=== PATIENT | male | born 2000 | race Caucasian/White ===

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

== ENCOUNTER 2021-04-19 14:01 | Emergency (ER) | payer OTHER, SELFPAY ==
[2021-04-19 14:23] VITALS: BP 144/90; PULSE 71; RESP 20; TEMP 36.8; O2SAT 98; BMI 21.2
--- NOTE | 2021-04-19 14:37 | HMH.EDUTC ---
[facility] [place] Disposition Clinical Impression: Strep throat Gastritis Qualifiers: Gastritis type: unspecified gastritis Chronicity: acute Gastritis bleeding: without bleeding Qualified Code(s): K29.00 - Acute gastritis without bleeding Clinical Impression: (Ruled Out): Medication refill Disposition: Home, Self-Care Condition on Discharge: Good Instructions: Strep Throat, DI for Strep Throat Additional Instructions: Drink plenty of fluids. Take tylenol or ibuprofen for pain or fever. Take the medications as directed. Follow up with your regular doctor. GO TO THE ER FOR ANY WORSENING SYMPTOMS Throw your tooth brush away and get a new one. Prescriptions: Ondansetron [Zofran 4mg ODT] 4 mg PO Q8HP PRN #20 tab PRN Reason: Nausea Transmission Status: Received by [facility] Amoxicillin [Amoxicillin 500mg Tab] 500 mg PO TID 10 Days #30 tab Transmission Status: Received by [facility] Referrals: Dawit Benoit MD [Primary Care Provider] - Forms: Work/School Release Time of Disposition: 15:17 Medical Decision Making - Medical Records Medical records reviewed: No: I reviewed the patient's medical records. - Alex Inquiry Pt receiving controlled substance: No Vital Signs: 04/19/21 14:23 04/19/21 15:45 Temperature 98.3 F 98.3 F Temperature Source Oral Pulse Rate 71 Pulse Rate [Left] 71 Respiratory Rate 20 20 Blood Pressure 144/90 H Blood Pressure [Right Arm] 144/90 H Blood Pressure Mean [Right Arm] 108 02 Sat by Pulse Oximetry 98 - Lab Data Lab Results 04/19/21 14:25: Strep Scn Rapid Clinic Positive A [facility] [place] HPI - General Stated complaint: vomiting, headache, Time Seen by Provider: 04/19/21 14:37 Mode of Arrival: Ambulatory Source of Information: Patient Limitations: No Limitations Description of Symptoms (Recalled from Triage Doc. by RN): pt c/o n/v/d, stomach ache and a sinus migraine. HEENT Symptoms (Recalled from RN notes): Yes (sinus migraine) Resp Symptoms (Recalled from RN notes): No Skin Symptoms (Recalled from RN notes): No MS Symptoms (Recalled from RN notes): No Functional Status (Recalled from RN notes): wnl - History of Present Illness Provider Complaint: He c/o head ache, sore throat, gi upset and feeling bad since last night. He denies significant chest congestion and cough, - Related Data Home Medications Medication Instructions Recorded Confirmed Loratadine [Allerclear] 10 mg PO DAILY 08/03/17 08/03/17 Montelukast Sodium [Singulair 10mg 10 mg PO PM 08/03/17 08/03/17 tablet] Previous Rx's Medication Instructions Recorded Albuterol Sulfate [Albuterol HFA 2 puffs IH Q6HP PRN #1 inh 08/03/17 Inhaler] nystatin 100,000 unit/mL oral 10 ml PO QID #480 ml 04/29/19 suspension Amoxicillin [Amoxicillin 500mg Tab] 500 mg PO TID 10 Days #30 tab 04/19/21 Ondansetron [Zofran 4mg ODT] 4 mg PO Q8HP PRN #20 tab 04/19/21 Allergies Allergy/AdvReac Type Severity Reaction Status Date / Time fish oil Allergy Severe THROAT Verified 08/03/17 13:03 SWELLS shellfish derived Allergy Unknown THROAT Verified 08/03/17 13:03 [From SHELLFISH (FOOD/DRUG)] SWELLS SHELLFISH (FOOD) Allergy Unknown THROAT Uncoded 05/14/17 15:04 SWELLS - Worker's Comp Is this a Worker's Comp case?: No [facility] History - Hepatitis A Screen Drug use history?: No High risk sexual behaviors?: No History of sexually transmitted infection?: No Currently employed?: No Childcare worker?: No Do you have indoor plumbing?: Yes Do you have electricity?: Yes Attestation statement:: This patient has been screened for Hepatitis A risk factors. I have reviewed the patient's past medical history: Yes - Social History Smoking Status: Current every day smoker Tobacco Type: cigarettes Alcohol Intake: never ROS Obtained: Yes All systems reviewed & no additional complaints - Constitutional Constitutional: Reports as per HPI - Ey
[2021-04-19 15:09] LABS: UTC Strep Screen (Rapid) Positive (Negative)
[2021-04-19 15:45] VITALS: BP 144/90; PULSE 71; RESP 20; TEMP 36.8
== END 2021-04-19 15:46 | disposition home or self-care (01) ==
PROVIDERS: Emergency Provider Nurse Practitioner Family; PCP Internal Medicine Adolescent Medicine
DX: K29.00 Acute gastritis without bleeding (principal); Z20.822 Contact with and (suspected) exposure to COVID-19
CPT/HCPCS: 87880; 99203; C9803; G0463; U0003; U0005

== ENCOUNTER 2021-08-23 13:12 | Emergency (ER) | payer OTHER, SELFPAY ==
[2021-08-23 15:04] VITALS: BP 123/76; PULSE 50; RESP 18; TEMP 36.9; O2SAT 99; BMI 20.7
[2021-08-23 15:16] LABS: UTC Influenza A Antigen Negative (Negative)
[2021-08-23 15:17] LABS: UTC Influenza B Antigen Negative (Negative)
[2021-08-23 15:27] LABS: Strep Scrn Group A (Rapid) Negative (Negative)
--- NOTE | 2021-08-23 15:29 | HMH.EDUTC ---
[facility] [place] Clinical Impression: Viral syndrome Disposition: Home, Self-Care Condition on Discharge: Good Instructions: DI for Viral Syndrome Additional Instructions: Drink plenty of fluids. Take tylenol or ibuprofen for pain or fever. Take the medications as directed. Follow up with your regular doctor. GO TO THE ER FOR ANY WORSENING SYMPTOMS He was sick with the same illness yesterday, so his work excuse needs to count for 08/22 also. Prescriptions: Brompheniramine/Pseudoephed/Dm [Bromfed Dm Cough Syrup] 5 ml PO Q6HP PRN #240 ml PRN Reason: Cough Transmission Status: Received by [facility] Ondansetron [Zofran 4mg ODT] 4 mg PO Q8HP PRN #20 tab PRN Reason: Nausea Transmission Status: Received by [facility] Referrals: Dawit Benoit MD [Primary Care Provider] - Forms: Work/School Release Time of Disposition: 16:14 Medical Decision Making - Medical Records Medical records reviewed: No: I reviewed the patient's medical records. - Alex Inquiry Pt receiving controlled substance: No Vital Signs: 08/23/21 15:04 08/23/21 16:27 Temperature 98.4 F 98.4 F Temperature Source Oral Pulse Rate 50 L Pulse Rate [Left] 50 L Respiratory Rate 18 18 Blood Pressure 123/76 Blood Pressure [Right Arm] 123/76 Blood Pressure Mean [Right Arm] 91 02 Sat by Pulse Oximetry 99 - Lab Data Lab results reviewed: Yes: I reviewed the patient's lab results. Lab Results 08/23/21 15:03: Group A Strep Rapid Negative 08/23/21 15:05: Influenza Type A Ag Negative, Influenza Type B Ag Negative Orders (Tests/Meds): ORDERS Category Date Time Status Strep Screen Confirmation Stat Micro 08/23/21 15:03 Received [facility] [place]PI - General Stated complaint: headache,vomiting,chills Time Seen by Provider: 08/23/21 15:45 Mode of Arrival: Ambulatory Source of Information: Patient Limitations: No Limitations Description of Symptoms (Recalled from Triage Doc. by RN): pt c/o a migraine in his R eye, n/v and chills yesterday. HEENT Symptoms (Recalled from RN notes): Yes Resp Symptoms (Recalled from RN notes): No Skin Symptoms (Recalled from RN notes): No MS Symptoms (Recalled from RN notes): No Functional Status (Recalled from RN notes): wnl - History of Present Illness Provider Complaint: He states that he started chilling and running a low grade fever yesterday. Today he feels very fatigued, has a dry cough, body aches and n/v - Related Data Home Medications Medication Instructions Recorded Confirmed Loratadine [Allerclear] 10 mg PO DAILY 08/03/17 08/03/17 Montelukast Sodium [Singulair 10mg 10 mg PO PM 08/03/17 08/03/17 tablet] Previous Rx's Medication Instructions Recorded Albuterol Sulfate [Albuterol HFA 2 puffs IH Q6HP PRN #1 inh 08/03/17 Inhaler] nystatin 100,000 unit/mL oral 10 ml PO QID #480 ml 04/29/19 suspension Amoxicillin [Amoxicillin 500mg Tab] 500 mg PO TID 10 Days #30 tab 04/19/21 Ondansetron [Zofran 4mg ODT] 4 mg PO Q8HP PRN #20 tab 04/19/21 Brompheniramine/Pseudoephed/Dm 5 ml PO Q6HP PRN #240 ml 08/23/21 [Bromfed Dm Cough Syrup] Ondansetron [Zofran 4mg ODT] 4 mg PO Q8HP PRN #20 tab 08/23/21 Allergies Allergy/AdvReac Type Severity Reaction Status Date / Time fish oil Allergy Severe THROAT Verified 08/03/17 13:03 SWELLS shellfish derived Allergy Unknown THROAT Verified 08/03/17 13:03 [From SHELLFISH (FOOD/DRUG)] SWELLS SHELLFISH (FOOD) Allergy Unknown THROAT Uncoded 05/14/17 15:04 SWELLS - Worker's Comp Is this a Worker's Comp case?: No H History - Hepatitis A Screen Drug use history?: No High risk sexual behaviors?: No History of sexually transmitted infection?: No Currently employed?: No Childcare worker?: No Do you have indoor plumbing?: Yes Do you have electricity?: Yes Attestation statement:: This patient has been screened for Hepatitis A risk factors. I have reviewed the slade
[2021-08-23 16:27] VITALS: BP 123/76; PULSE 50; RESP 18; TEMP 36.9
== END 2021-08-23 16:27 | disposition home or self-care (01) ==
PROVIDERS: Emergency Provider Nurse Practitioner Family; PCP Internal Medicine Adolescent Medicine
DX: B34.9 Viral infection, unspecified (principal); R50.9 Fever, unspecified; R11.10 Vomiting, unspecified; F17.210 Nicotine dependence, cigarettes, uncomplicated; Z79.899 Other long term (current) drug therapy
CPT/HCPCS: 87430; 87804; 99212; G0463

== ENCOUNTER 2024-04-28 13:56 | Emergency (ER) | payer BC, SELFPAY ==
[2024-04-28 14:05] VITALS: BP 161/90; PULSE 110; PULSE 125; RESP 22; TEMP 36.9; O2SAT 92; BMI 22.1
--- NOTE | 2024-04-28 14:13 | XR_ITS ---
PROCEDURE INFORMATION: Exam: XR Chest Exam date and time: 04/28/2024 2:30 PM Age: 23 years old Clinical indication: Shortness of breath and wheezing; Additional info: SOA, asthma exacerbation, R wheezing> L TECHNIQUE: Imaging protocol: Radiologic exam of the chest. Views: 2 views. Total images: 2 COMPARISON: No relevant prior studies available. FINDINGS: Lungs: Bilateral hyperinflation is present. No focal pneumonia. Pleural spaces: Unremarkable. No pleural effusion. No pneumothorax. Heart/Mediastinum: Unremarkable. No cardiomegaly. Bones/joints: Unremarkable. IMPRESSION: 1. Bilateral hyperinflation is present. 2. No focal pneumonia.
[2024-04-28] MEDS: DEXAMETHASONE 4MG TABLET 10 MG PO (14:17)
[2024-04-28] MEDS: IPRATROPIUM/ALBUTEROL 3 ML NEB 9 ML IH (14:17)
--- NOTE | 2024-04-28 14:19 | ED_ITS ---
Discharge Plan Disposition Patient Disposition: Home, Self-Care Prescriptions Prescriptions: New budesonide-formoterol [Symbicort] 80-4.5 mcg/actuation HFA aerosol inhaler 2 inh inhalation BID Qty: 10.2 5RF albuterol sulfate 2.5 mg /3 mL (0.083 %) solution for nebulization 2.5 mg inhalation Q4H PRN (Reason: shortness of breath or wheezing) Qty: 180 3RF doxycycline hyclate 100 mg capsule 100 mg PO BID 5 Days Qty: 10 0RF prednisone 20 mg tablet 40 mg PO DAILY 5 Days Qty: 10 0RF No Action nystatin 100,000 unit/mL suspension 10 ml PO QID Qty: 480 0RF Rx Instructions: administer 1/2 of dose in each side of the mouth montelukast 10 MG tablet 10 mg PO PM loratadine [Allerclear] 10 MG tablet 10 mg PO DAILY albuterol sulfate 18 GM HFA aerosol inhaler 2 puffs IH Q6HP PRN (Reason: Shortness Of Breath Or Wheezing) Qty: 1 1RF amoxicillin 500 MG tablet 500 mg PO TID 10 Days Qty: 30 0RF ondansetron 4 MG tablet,disintegrating 4 mg PO Q8HP PRN (Reason: Nausea) Qty: 20 0RF ykjpbsvggfqcecn-kqbjijwjz-AO 118 ML syrup 5 ml PO Q6HP PRN (Reason: Cough) Qty: 240 0RF ondansetron 4 MG tablet,disintegrating 4 mg PO Q8HP PRN (Reason: Nausea) Qty: 20 0RF Referrals Follow up/Referrals: Dawit Benoit MD [Primary Care Provider] - See instructions Activity Restrictions/Add. Instructions Additional Instructions/Restrictions: Antibiotic twice daily for 5 days, prednisone each morning for the next 5 days. Call your family doctor to establish care for this visit to the emergency department and schedule follow-up within 48 hours to ensure improvement. If you have any worsening of your condition or any other concerning signs or symptoms, return to the emergency department or your primary care doctor for further evaluation. Clinical Impressions Clinical Impression: Asthma exacerbation, Right lower lobe pneumonia Print Language Print Language: Amharic Discharge ED Provider: Aroldo Rocha General Chief Complaint: Shortness of Breath/Dyspnea Stated Complaint: asthma flare up Time Seen by Provider: 04/28/24 14:07 Mode of Arrival: Ambulatory Source of Information: Patient Limitations: No Limitations Description of Symptoms (Recalled from ER Triage Doc. by RN): short of breath,has asthma tachycardia History of Present Illness HPI narrative: Please note that above description of symptoms, in this electronic medical record under categorization of recalled from ER triage doctor by RN are reflective of an initial nursing assessment, however, is not reflective of my full history and physical exam that was personally taken and clarified. Consequentially, this preceding description of symptoms, which may include the patient's categorized chief complaint in the EMR, do not reflect my personal clinical impression, and the ultimate description of history of present illness and patient stated complaints should be deferred to this section of the note. Unless stated otherwise or congruent with this section of the note, additional signs, symptoms, or incongruence should be interpreted as inaccurate with my clinical impression. Related Data Home Medications ?Medication ?Instructions ?Recorded ?Confirmed loratadine 10 mg tablet 10 mg PO DAILY ALLERGIES 08/03/17 08/03/17 (Allerclear) montelukast 10 mg tablet 10 mg PO PM ALLERGIES 08/03/17 08/03/17 Previous Rx's ?Medication ?Instructions ?Recorded albuterol sulfate 90 mcg/actuation 2 puffs IH Q6HP PRN Shortness Of 08/03/17 aerosol inhaler Breath Or Wheezing #1 inh nystatin 100,000 unit/mL oral 10 ml PO QID #480 mL 04/29/19 suspension amoxicillin 500 mg tablet 500 mg PO TID 10 days #30 tabs 04/19/21 ondansetron 4 mg disintegrating 4 mg PO Q8HP PRN Nausea #20 tabs 04/19/21 tablet nuvnkvjdvorrasq-ilhegakvqcxgazh-GL 5 ml PO Q6HP PRN Cough #240 mL 08/23/21 2 mg-30 mg-10 mg/5 mL oral syrup ondansetron 4 mg disintegrating 4 mg PO Q8HP PRN Nausea #20 tabs 08/23/21 tablet albuterol sulfate 2.5 mg/3 mL 2.5 mg (3 mL) inhalation Q4H PRN 04/28/24 (0.083 %) solution for nebulization shortness of breath or wheezing #180 mL budesonide-formoterol HFA 80 2 inh inhalation BID #10.2 grams 12/03/24 mcg-4.5 mcg/actuation aerosol inhaler (Symbicort) doxycycline hyclate 100 mg capsule 100 mg PO BID 5 days #10 caps 04/28/24 prednisone 20 mg tablet 40 mg (2 x 20 mg) PO DAILY 5 days 04/28/24 #10 tabs Allergies Allergy/AdvReac Type Severity Reaction Status Date / Time fish oil Allergy Severe THROAT Verified 08/03/17 13:03 SWELLS shellfish derived (From Allergy Unknown THROAT Verified 08/03/17 13:03 SHELLFISH (FOOD/DRUG)) SWELLS SHELLFISH (FOOD) Allergy Unknown THROAT Uncoded 05/14/17 15:04 SWELLS PFSH PFS Disclaimer: The information contained in this section may have been updated after the patient was seen, as this information can be updated by other users. Social History Smoking Status: Never smoker alcohol intake: never current occupational status: employed Travel in the last 8 weeks: None ROS Obtained: Yes All systems reviewed & no additional complaints except as documented Physical Exam General General appearance: alert and in distress (Mild respiratory distress, tachypneic, expiring through pursed lips) Neck Neck exam: Present trachea midline Chest Chest inspection: Present normal inspection and symmetric chest wall rise Respiratory Respiratory exam: Present wheezes (Bilateral, right greater than left on expiration.. Inspiratory wheezes right lower lobe posteriorly), accessory muscle use and prolonged expiratory phase; Absent respiratory distress or stridor Cardiovascular Cardiovascular exam: Present regular rate, normal rhythm and other (Pulses equal and symmetric in upper and lower extremities) Extremities Exam Extremities exam: Absent edema Neurological Exam Neurological exam: Present alert, oriented X3 and CN II-XII intact Skin Skin exam: Present warm and dry; Absent cyanosis, diaphoresis or pallor HEART Score HEART Score HEART Score assessment performed?: No Critical Care Critical Care Time Critical Care Time: No Medical Decision Making Medical Records Medical records reviewed: Yes I reviewed the patient's medical records. Alex Inquiry Pt receiving controlled substance: No Laex was queried for this patient: No Vital Signs Vital Signs: 04/28/24 14:05 04/28/24 14:05 04/28/24 14:30 Temperature 98.4 F Temperature Source Oral Pulse Rate 125 H 101 H Pulse Rate [Right] 110 H Respiratory Rate 22 Blood Pressure 161/90 H 147/94 H Blood Pressure [Right Arm] 161/90 H Blood Pressure Mean [Right Arm] 113 02 Sat by Pulse Oximetry 92 L 92 L 96 Oxygen Delivery Method Room Air Room Air Room Air Response Orders (Tests/Meds): ED MEDICATIONS Discontinued Medications Generic Name Dose Route Start Last Admin Trade Name Melissa PRN Reason Stop Dose Admin Albuterol/Ipratropium 9 ml 04/28/24 14:12 04/28/24 14:17 Ipratropium/Albuterol 3 Ml Neb IH 04/28/24 14:13 9 ml ONCE ONE Administration Dexamethasone 10 mg 04/28/24 14:12 04/28/24 14:17 Dexamethasone 4mg Tablet PO 04/28/24 14:13 10 mg ONCE ONE Administration ORDERS Category Date Time Status CXR 2 view (NOT portable) [XR chest 2V] Stat Exams 04/28/24 14:13 Taken HIV (1&2) Antibody Rapid Stat Lab 04/28/24 14:08 Ordered Hep C Ab with Reflex to RNA Stat Lab 04/28/24 14:08 Ordered MDM Narrative Medical Decision Narrative: 23-year-old male history of asthma poorly controlled presenting with difficulty breathing. Patient states that he has had cough for the last 48 hours or so. Now productive of yellow sputum. States that he has been having trouble breathing throughout today. Has been taking pwhh-mjy-hjyvysg supplements to try to help with breathing that usually help, has not helped this time around. No fevers or chills, nausea or vomiting, change in mental status, chest pain, or other complaints. No sick contacts that he knows of. Almost out of his nebulizer solution. Patient states that he has had numerous hospitalizations throughout his life for asthma exacerbations, this feels similar. Never needed intubated. History was obtained via conversation with patient and father. On arrival, patient hemodynamically stable, alert, oriented x4, appropriate, GCS 15, moving all extremities spontaneously, pupils equal and reactive to light. Full physical exam performed and significant for 23-year-old male mild respiratory distress. Breathing through pursed lips, tachypneic, prolonged expiratory phase. Hypoxemic 92% on room air initially. Bilateral expiratory wheezes heard throughout expiratory phase, inspiratory wheezes right lower lung [place]. Tachycardic without other focal cardiac findings. Differential includes asthma exacerbation, pneumonia,. Patient was given DuoNebs and Decadron for symptomatic management and correction of underlying abnormalities. Patient placed on continuous cardiac monitoring and continuous pulse ox with initial blood pressure 161/90, heart rate 125, saturation 92% on room air. Workup independently interpreted and significant for bronchial inflammation and viral appearance on chest x-ray. He appears to have isolated streaking right lower lung field where he had most of his wheezes consistent with developing pneumonia as well. See radiology read for full review of final results. On reevaluation, patient states he feels much better, not currently symptomatic. No longer coughing, not feeling short of breath. Given patient presentation, workup, history, this most likely represents acute asthma exacerbation in the setting of viral illness given DICK guidelines, Symbicort sent to pharmacy. Because patient at baseline without signs or symptoms of clinical decompensation, deemed appropriate for discharge. Results were relayed to kwame argueta who voiced understanding and were agreeable to outpatient management and follow up. I discussed my clinical impression with patient and answered all questions. At this time, the evidence for any other entities in the differential is insufficient to warrant any further testing or ED observation. This was explained as well. Advisory was given that persistent or worsening symptoms require further evaluation. I confirmed the understanding of this discussion. Senior Art Director disclaimer Much of this encounter note is an electronic television audio engineer spoken language to printed text. Electronic television audio engineer of the spoken language may permit errors. Although I have reviewed the note, some errors may still exist.
[2024-04-28 14:30] VITALS: BP 147/94; PULSE 101; O2SAT 96
[2024-04-28 15:10] VITALS: BP 147/94; PULSE 101; RESP 18; TEMP 36.6
== END 2024-04-28 15:11 | disposition home or self-care (01) ==
LOC: UTC 14:02 → ER 14:03
PROVIDERS: Emergency Provider Emergency Medicine; PCP Internal Medicine Adolescent Medicine
DX: J45.901 Unspecified asthma with (acute) exacerbation (principal); J18.9 Pneumonia, unspecified organism; R06.02 Shortness of breath
CPT/HCPCS: 71046; 99284; J7620; J8540